=== PATIENT | male | born 1980 ===

== ENCOUNTER 2018-05-01 02:40 | Emergency (ER) | payer OTHER, BC ==
[2018-05-01 02:53] VITALS: RESP 16
[2018-05-01] MEDS ORDERED: Tdap Vaccine 0.5 ml Vial (10-64 yrs) IM ONE (03:01)
--- NOTE | 2018-05-01 03:10 | ED PDOC ---
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 Denies head injury, other injury, numbness, tingling. Past Medical History Reviewed: Historical Data, Nursing Documentation, Vital Signs Vital Signs: Last Vital Signs Temp 98.4 F 05/01/18 02:50 Pulse 95 H 05/01/18 02:50 Resp 16 05/01/18 02:50 BP 160/90 H 05/01/18 02:50 Pulse Ox 98 05/01/18 02:50 - Family History Family History: States: No Known Family Hx - Allergies Allergies/Adverse Reactions: Allergies Allergy/AdvReac Type Severity Reaction Status Date / Time No Known Allergies Allergy Verified 05/01/18 03:00 Review of Systems ROS Statement: Except As Marked, All Systems Reviewed And Found Negative Musculoskeletal: Positive for: Hand Pain Physical Exam - Physical Exam Appears: Positive for: Well, Non-toxic, No Acute Distress Skin: Positive for: Normal Color, Warm. Negative for: Rash Eye Exam: Positive for: Normal appearance Pulses-Dorsalis Pedis (R): 2+ Pulses-Radial (L): 2+ Pulses-Radial (R): 2+ Extremity: Positive for: Other (R hand on dorsal surface of 2nd MCP with superficial abrasions and minimal swelling but without tenderness of limitation in ROM; R knee with FROM actively but without swelling, tenderness, deformit, or break in skin integrity) - ECG O2 Sat by Pulse Oximetry: 98 - Progress ED Course And Treament: Tetanus prophylaxis administered. R hand, R knee x-ray ordered. Abrasions cleansed and dressed. Disposition - Clinical Impression Clinical Impression: Hand injury, Knee injury - Patient ED Disposition Is Patient to be Admitted: No - Disposition Referrals: Ananda Guadalupe MD [Staff Provider] - Disposition: Routine/Home Disposition Time: 04:05 Condition: IMPROVED Additional Instructions: ABNER BAKER, thank you for letting us take care of you today. Your provider was Susie Steele MD and you were treated for WC:RT ANKLE INJURY. The emergency medical care you received today was directed at your acute symptoms. If you were prescribed any medication, please fill it and take as directed. It may take several days for your symptoms to resolve. Return to the Emergency Department if your symptoms worsen, do not improve, or if you have any other problems. Please contact your doctor or call one of the physicians/clinics you have been referred to that are listed on the Patient Visit Information form that is included in your discharge packet. Bring any paperwork you were given at discharge with you along with any medications you are taking to your follow up visit. Our treatment cannot replace ongoing medical care by a primary care provider outside of the emergency department. Thank you for allowing the [facility] team to be part of your care today. If you had an X-Ray or CT scan: A Radiologist will review the ED reading if any change in treatment is needed we will contact you. If you had a blood, urine, or wound culture: It will take several days for the results, if any change in treatment is needed we will contact you. If you had an STI test: It will take 48 hours for the results. Please call after 1 week if you have not heard back. Instructions: Hand Pain (DC), Knee Pain (DC) Forms: [employer] (Ugandan), [facility] ED School/Work Excuse
[2018-05-01 04:24] VITALS: BP 142/78; PULSE 80; TEMP 98.8
--- NOTE | 2018-05-01 10:55 | RAD ---
PROCEDURE: Right Hand Radiographs. HISTORY: trauma COMPARISON: None. FINDINGS: Limited evaluation due to absence of true lateral view. BONES: No acute fracture. JOINTS: Questionable widening of the scapholunate interval SOFT TISSUES: Normal. OTHER FINDINGS: None. IMPRESSION: Evaluation is limited due to absence of true lateral view. No acute fracture is evident. Questionable widening of the scapholunate interval. MRI can be obtained for further evaluation as clinically warranted.
--- NOTE | 2018-05-01 10:56 | RAD ---
Date of service: 05/01/2018 PROCEDURE: Right Knee Radiographs. HISTORY: trauma COMPARISON: None. FINDINGS: BONES: No acute fracture. JOINTS: Unremarkable. JOINT EFFUSION: None. OTHER FINDINGS: None. IMPRESSION: No demonstrated fracture or dislocation.
[2018-05-02 01:01] VITALS: O2SAT 98
== END 2018-05-01 04:44 | disposition home or self-care (01) ==
LOC: EDBD 02:40 → H.ER 02:40
DX: S69.91XA Unspecified injury of right wrist, hand and finger(s), initial encounter (principal); S99.911A Unspecified injury of right ankle, initial encounter; W19.XXXA Unspecified fall, initial encounter; Y99.0 Civilian activity done for income or pay

== ENCOUNTER 2018-05-06 03:50 | Emergency (ER) | payer BC, OTHER ==
[2018-05-06 04:03] VITALS: BMI 28.1
[2018-05-06 04:07] VITALS: RESP 18
[2018-05-06] MEDS ORDERED: Sodium Chloride 0.9% 1,000 ML IV STA (04:17)
--- NOTE | 2018-05-06 04:20 | ED PDOC ---
HPI: General Adult Time Seen by Provider: 05/06/18 04:07 Chief Complaint (Nursing): GI Problem Chief Complaint (Provider): vomiting History Per: Patient History/Exam Limitations: no limitations Onset/Duration Of Symptoms: Hrs (3) Current Symptoms Are (Timing): Still Present Additional Complaint(s): 37 y/o male history of diabetes presents for evaluation of 5 vomiting episodes x 3 hours. 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 Patient states he initially felt better after vomiting but then when changing to come to ED he became nauseous again and vomited once. Denies fever, headache, dizziness, vision changes, extremity numbness/weakness, chest pain, shortness of breath, palpitations, abdominal pain, changes in bowel movements, urinary symptoms. Patient states coworkers with sick with similar symptoms this week and last week and that their lockers are all near each other. Past Medical History Reviewed: Historical Data, Nursing Documentation, Vital Signs Vital Signs: Last Vital Signs Temp 97.5 F L 05/06/18 04:03 Pulse 55 L 05/06/18 04:03 Resp 18 05/06/18 04:03 BP 127/76 05/06/18 04:03 Pulse Ox 100 05/06/18 04:03 - Medical History PMH: Diabetes - Surgical History Surgical History: No Surg Hx - Family History Family History: States: No Known Family Hx - Social History Current smoker - smoking cessation education provided: No Alcohol: Social Drugs: Denies - Home Medications Home Medications: Ambulatory Orders Medication Instructions Recorded Ondansetron ODT [Zofran ODT] 4 mg PO Q8 PRN #10 odt 05/06/18 - Allergies Allergies/Adverse Reactions: Allergies Allergy/AdvReac Type Severity Reaction Status Date / Time No Known Allergies Allergy Verified 05/01/18 03:00 Review of Systems ROS Statement: Except As Marked, All Systems Reviewed And Found Negative Gastrointestinal: Positive for: Nausea, Vomiting Physical Exam - Reviewed Nursing Documentation Reviewed: Yes Vital Signs Reviewed: Yes - Physical Exam Appears: Positive for: Well, Non-toxic, No Acute Distress Head Exam: Positive for: ATRAUMATIC, NORMAL INSPECTION, NORMOCEPHALIC Skin: Positive for: Normal Color Eye Exam: Positive for: Normal appearance, EOMI, PERRL ENT: Positive for: Normal ENT Inspection Cardiovascular/Chest: Positive for: Regular Rate, Rhythm Respiratory: Positive for: Normal Breath Sounds Gastrointestinal/Abdominal: Positive for: Normal Exam, Bowel Sounds, Soft. Negative for: Tenderness Back: Positive for: Normal Inspection Extremity: Positive for: Normal ROM Neurologic/Psych: Positive for: Alert, Oriented (x3) - Laboratory Results Result Diagrams: 05/06/18 04:15 05/06/18 04:15 - ECG ECG: Positive for: Viewed By Me (reviewed by ED attending) ECG Rhythm: Positive for: Sinus Bradycardia (52bpm) O2 Sat by Pulse Oximetry: 100 - Progress ED Course And Treament: -accucheck -cbc -cmp -ekg -IV NS bolus -IV zofran On re-eval, patient states he is feeling better. Tolerating PO Patient educated on findings, discharged with rx Zofran Advised follow up PMD within 2-3 days INcrease fluid intake, bland diet Return precautions given Disposition - Clinical Impression Clinical Impression: Gastroenteritis - Patient ED Disposition Is Patient to be Admitted: No Counseled Patient/Family Regarding: Studies Performed, Diagnosis, Need For Followup, Rx Given - Disposition Disposition: Routine/Home Disposition Time: 05:39 Condition: IMPROVED Prescriptions: Ondansetron ODT [Zofran ODT] 4 mg PO Q8 PRN #10 odt PRN Reason: Nausea/Vomiting Instructions: Viral Gastroenteritis Forms: [facility] (Khmer), [facility]Work Excuse
[2018-05-06 04:57] LABS: BASO % 0.3 % (0.0-2.0); EOS # 0.3 K/uL (0.0-0.7); EOS % 4.3 % (0.0-4.0); HEMOGLOBIN 13.7 g/dL (12.0-18.0); LYMPH # 2.9 K/uL (1.0-4.3); LYMPH % 36.4 % (20.0-40.0); MEAN CELL VOLUME 92.5 fl (80.0-94.0); MEAN CORPUSCULAR HEMOGLOBIN 31.3 pg (27.0-31.0); MEAN CORPUSCULAR HGB CONC 33.8 g/dL (33.0-37.0); MEAN PLATELET VOLUME 8.8 fl (7.2-11.7); MONO # 0.5 K/uL (0.0-0.8); MONO % 5.9 % (0.0-10.0); NEUT # 4.2 K/uL (1.8-7.0); NEUT % 53.1 % (50.0-75.0); NRBC % 0.1 % (0.0-0.0); RBC 4.4 Mil/uL (4.40-5.90); RED CELL DISTRIBUTION WIDTH 13.5 % (11.5-14.5)
[2018-05-06 05:02] LABS: ALB/GLOB RATIO 1.6 (1.0-2.1); ALBUMIN 4.5 g/dL (3.5-5.0); ALT/SGPT 37 U/L (21-72); AST/SGOT 33 U/L (17-59); BLOOD UREA NITROGEN 20 mg/dl (9-20); CALCIUM 9.4 mg/dL (8.4-10.2); GFR NON-AFRICAN AMERICAN > 60
[2018-05-06 05:46] VITALS: BP 125/75; PULSE 58; TEMP 97.7; O2SAT 99
--- NOTE | 2018-05-06 12:22 | CARD ---
APPROVED REPORT Date of service: 05/06/2018 EKG Measurement Heart [id number] ID [id number] <Conclusion> Sinus bradycardia with premature atrial complexes Otherwise normal ECG
== END 2018-05-06 06:04 | disposition home or self-care (01) ==
LOC: H.ER 03:50
DX: K52.9 Noninfective gastroenteritis and colitis, unspecified (principal); E11.9 Type 2 diabetes mellitus without complications; I49.1 Atrial premature depolarization
CPT/HCPCS: 80053; 82948; 85025; 93005; 96360; 99284; J2405; J7030